=== PATIENT | male | born 1990 | race Caucasian/White ===

== ENCOUNTER → 2020-10-23 | Outpatient (CLI) | payer OTHER | LOC: GENOP 18:10 → LAB 18:10 | DX: Z20.822 Contact with and (suspected) exposure to COVID-19 (principal) | CPT/HCPCS: U0003 ==

== ENCOUNTER 2021-02-26 15:40 | Emergency (ER) | payer OTHER ==
[~2021-02-26] VITALS: Ht 177.8 cm; Wt 99.8 kg
[2021-02-26 16:09] LABS: HEMOGLOBIN 15.6 gm/dl (14.0-17.5); RED BLOOD COUNT 4.78 M/UL (4.20-5.50); WHITE BLOOD COUNT 3.6 K/UL (4.5-11.0)
[2021-02-26] MEDS ORDERED: ZOFRAN4 MG PO (18:47)
== END 2021-02-26 18:51 | disposition home or self-care (01) ==
LOC: ER1 15:40
PROVIDERS: Physician Assistant Medical
DX: U07.1 COVID-19 (principal); E86.0 Dehydration; Z23 Encounter for immunization
CPT/HCPCS: 71045; 80053; 83605; 85025; 87040; 96374; 99283; J2405; J7030; M0245